=== PATIENT | male | born 1985 | race Caucasian/White ===

== ENCOUNTER 2020-06-05 12:31 | Emergency (ER) | payer BC, MEDICAID, SELFPAY ==
[~2020-06-05] VITALS: Ht 177.8 cm; Wt 83.8 kg
[2020-06-05] MEDS ORDERED: diphenhydrAMINE 50MG/ML VIAL (J1200) IV ONE (14:50)
[2020-06-05] MEDS ORDERED: methylPREDNISolone 125MG 2ML VIAL IV ONE (14:50)
[2020-06-05] MEDS ORDERED: FAMOTIDINE INJ 20MG/2ML VIAL (S0028 PER 1) IVP ONE (14:50)
[2020-06-05 15:13] VITALS: O2SAT 93
--- NOTE | 2020-06-05 15:28 | REP ---
INDICATION: Coronavirus workup. COMPARISON: None. TECHNIQUE: Portable AP chest with the patient upright. FINDINGS: The lung chavez are clear. Cardiac size is normal. The brie, mediastinum and skeletal structures are unremarkable. 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 IMPRESSION: Essentially negative portable chest <Electronically signed by Misael Monge > 06/05/20 0705
[2020-06-05 15:54] LABS: BASO % 0.4 % (0.0-1.0); EOS # 0.1 10^3/uL (0.0-0.5); HEMOGLOBIN 15.7 g/dl (13.5-17.5); LYMPH % 8.8 % (24.0-44.0); MEAN CORPUSCULAR HEMOGLOBIN 32.2 pg (27.0-33.0); MEAN CORPUSCULAR HGB CONC 35.7 g/dl (32.0-36.5); MEAN CORPUSCULAR VOLUME 90.3 fl (80.0-96.0); MONO # 0.9 10^3/uL (0.0-0.8); MONO % 8.1 % (2.0-8.0); NEUTROPHILS # 8.9 10^3/uL (1.5-8.5); NEUTROPHILS % 81.3 % (36.0-66.0); PLATELET COUNT, AUTOMATED 172 10^3/uL (150-450); RED BLOOD COUNT 4.87 10^6/uL (4.30-6.10)
[2020-06-05 16:20] LABS: ALBUMIN 4.3 GM/DL (3.2-5.2); ALT/SGPT 54 U/L (12-78); BILIRUBIN,DIRECT 0.2 MG/DL (0.0-0.2); BILIRUBIN,TOTAL 0.6 MG/DL (0.2-1.0); BLOOD UREA NITROGEN 9 MG/DL (7-18); CALCIUM LEVEL 9.1 MG/DL (8.5-10.1); CARBON DIOXIDE LEVEL 24 MEQ/L (21-32); CHLORIDE LEVEL 104 MEQ/L (98-107); CK-MB VALUE MASS < 1.0 NG/ML (<3.6); CPK CREATINE PHOSPHOKINASE 64 U/L (39-308); GLOMERULAR FILTRATION RATE > 60.0 (>60); GLUCOSE, FASTING 118 MG/DL (70-100); LDH LACTATE DEHYDROGENASE 154 U/L (87-241); LIPASE 98 U/L (73-393); MB/CK RELATIVE INDEX 1.56 (< OR =4); POTASSIUM SERUM 4.1 MEQ/L (3.5-5.1); SODIUM LEVEL 136 MEQ/L (136-145); TOTAL PROTEIN 8.2 GM/DL (6.4-8.2); TROPONIN I < 0.02 NG/ML (< 0.10)
[2020-06-05] MEDS ORDERED: PRED20TA PO (18:24)
[2020-06-05] MEDS ORDERED: TESS100C PO (18:27)
[2020-06-05 18:54] VITALS: BP 138/89
--- NOTE | 2020-06-06 17:55 | ECGEPIP ---
[facility] - ED Test Date: 2020-06-05 Pat Name: MCKENZIE GONZALEZ Department: Room: - Gender: Male Barge Hand: [id number] : 1985 Requested By: DORINA Barboza PA-C Order Number: [id number] Reading MD: Shima Shah Measurements Intervals Bath Rate: 92 P: 61 CT: 130 QRS: -17 QRSD: 84 T: 16 QT: 336 QTc: 415 Interpretive Statements Normal sinus rhythm NSTTW abnormalities no prior Electronically Signed on 06-06-2020 17:55:05 EDT by Shima Shah
== END 2020-06-05 18:55 | disposition home or self-care (01) ==
LOC: M ED 12:31
DX: J44.1 Chronic obstructive pulmonary disease with (acute) exacerbation (principal); J98.01 Acute bronchospasm; J06.9 Acute upper respiratory infection, unspecified; B34.8 Other viral infections of unspecified site; R05 Cough; M94.0 Chondrocostal junction syndrome [Tietze]; R11.2 Nausea with vomiting, unspecified; Z87.442 Personal history of urinary calculi
CPT/HCPCS: 71045; 80048; 80076; 82550; 82553; 83615; 83690; 84484; 85025; 87798; 93005; 96374; 96375; 99284; J1200; J2930

== ENCOUNTER → 2020-06-26 | Outpatient (CLI) | payer SELFPAY ==
[~2020-06-26] MED LIST: PRED20TA PO; TESS100C PO
== END ==
LOC: M LABSMTC 13:40
PROVIDERS: ATTEND Pediatrics
DX: Z20.822 Contact with and (suspected) exposure to COVID-19 (principal)

== ENCOUNTER 2021-05-22 12:12 | Emergency (ER) | payer SELFPAY ==
[~2021-05-22] VITALS: Ht 180.3 cm; Wt 85.9 kg
[2021-05-22 12:12] VITALS: BP 116/81
[2021-05-22] MEDS ORDERED: AMOX875T2 (12:30)
== END 2021-05-22 17:22 | disposition home or self-care (01) ==
LOC: M ED 12:12
DX: J31.0 Chronic rhinitis (principal); Z87.442 Personal history of urinary calculi; Z79.51 Long term (current) use of inhaled steroids

== ENCOUNTER → 2023-06-20 | Outpatient (REF) | payer BC ==
[~2023-06-20] MED LIST changes: +AMOX875T2
[2023-06-20 17:55] LABS: APPEARANCE, URINE HAZY (CLEAR); BACTERIA, URINE AUTO NEGATIVE (NEGATIVE); BILIRUBIN, URINE AUTO NEGATIVE (NEGATIVE); BLOOD, URINE BLOOD 1+ (NEGATIVE); COLOR, URINE YELLOW (YELLOW); GLUCOSE, URINE (UA) AUTO NEGATIVE (NEGATIVE); KETONE, URINE AUTO TRACE mg/dL (NEGATIVE); LEUKOCYTE ESTERASE, URINE AUTO NEGATIVE (NEGATIVE); MUCUS, URINE SMALL (NEGATIVE); NITRITE, URINE AUTO NEGATIVE (NEGATIVE); PROTEIN, URINE AUTO 1+ mg/dL (NEGATIVE); RBC, URINE AUTO 12 /HPF (0-3); SPECIFIC GRAVITY URINE AUTO 1.023 (1.002-1.035); SQUAMOUS EPITHELIAL CELL UR AU 0 /HPF (0-6); UROBILINOGEN, URINE AUTO 0.2 mg/dL (0.0-2.0); WBC, URINE AUTO 3 /HPF (0-3)
== END ==
LOC: M LAB REF 16:15
PROVIDERS: ATTEND Physician Assistant
DX: N39.0 Urinary tract infection, site not specified (principal)